=== PATIENT | male | born 1985 | race Caucasian/White ===

== ENCOUNTER 2017-05-02 10:28 | Emergency (ER) | payer OTHER ==
[2017-05-02 10:42] VITALS: BP 119/73; PULSE 82; TEMP 98.5; BMI 22.1
--- NOTE | 2017-05-02 11:37 | PDOC ---
History of Present Illness - General Chief Complaint: Injury Stated Complaint: INJURY Time Seen by Provider: 05/02/17 11:18 History Source: Patient Exam Limitations: No Limitations - History of Present Illness Initial Comments: CHIEF COMPLAINT: 31 y/o male with right 5th toe pain x 2 days. HISTORY OF PRESENT ILLNESS: Pt stubbed his right 5th toe 2 days ago after running after his son. He has taped it to the one next to it. He is here for an xray. He denies numbness/tingling. Vital signs on arrival are within normal limits. REVIEW OF SYSTEMS: GENERAL/CONSTITUTIONAL: No fever/chills. No weakness. No weight change. MUSCULOSKELETAL: +right 5th toe pain and swelling. No neck or back pain. SKIN: No rash or easy bruising. NEUROLOGIC: No headache, vertigo, loss of consciousness, or loss of sensation. PHYSICAL EXAM: VITAL_SIGNS: within normal limits GENERAL_APPEARANCE: alert, cooperative, no obvious discomfort. Pt is ambulatory. MENTAL_STATUS: speech clear, oriented X 3, responds appropriately to questions. NEURO: motor intact and sensory intact in injured extremity. EXTREMITIES: good pulse in injured extremity. Minor swelling and ecchymosis to right 5th toe. motor and sensory intact in affected extremity. Pain with palpation of 5th toe. SKIN: warm, dry, good color. Past History - Past Medical History Allergies/Adverse Reactions: Allergies Allergy/AdvReac Type Severity Reaction Status Date / Time NSAIDS (Non-Steroidal Allergy Verified 05/02/17 10:39 Anti-Inflamma Home Medications: Ambulatory Orders Hydrocodone Bit/Acetaminophen [Vicodin Hp 10-300mg -] 1 tab PO Q8H 02/28/15 Pregabalin [Lyrica] 100 mg PO Q8H 02/28/15 Acetaminophen [Tylenol] 650 mg PO Q4H PRN #20 tablet 08/27/15 Mag Hydrox/Al Hydrox/Simeth [Mylanta Suspension -] 30 ml PO Q6H PRN #1 bottle Ondansetron HCl [Zofran] 4 mg PO Q6H PRN #20 tablet 08/27/15 Ranitidine HCl [Zantac] 150 mg PO BID PRN #20 tablet 08/27/15 COPD: No GI Disorders: Yes (bleeding ulcer) Psychiatric Problems: Yes (SCHIZO EFFECTIVE BIPOLAR) - Suicide/Smoking/Psychosocial Hx Smoking Status: Yes Smoking History: Never smoked Have you smoked in the past 12 months: No Number of Cigarettes Smoked Daily: 0 Hx Alcohol Use: No Drug/Substance Use Hx: No Substance Use Type: Marijuana *Physical Exam - Vital Signs Last Vital Signs Temp Pulse Resp BP Pulse Ox 98.5 F 82 19 119/73 98 05/02/17 10:39 05/02/17 10:39 05/02/17 10:39 05/02/17 10:39 05/02/17 10:39 ED Treatment Course - RADIOLOGY Radiology Studies Ordered: Category Date Time Status TOE(S) RIGHT [RAD] Stat Radiology 05/02/17 11:28 Ordered Medical Decision Making - Medical Decision Making A/P: 31 y/o male with right 5th toe pain, most likely fx. Plan is as follows: 1. xray toe xray toe IMPRESSION: Nondisplaced fracture in mid an distal shaft of the 5th proximal phalanx. Gave the patient the results. Suggested he continue with sonya taping and follow RICE instructions. Suggested he continue taking his prescribed pain medication at home and f/u with Dr. Camejo in 2 weeks if no improvement in symptoms. The patient verbalizes understanding of all instructions, has no further questions and is awaiting discharge. *DC/Admit/Observation/Transfer Diagnosis at time of Disposition: Toe fracture, right Qualifiers: Encounter type: initial encounter Toe: lesser toe Fracture type: closed Phalanx : unspecified phalanx Fracture alignment: nondisplaced Qualified Code(s): S92.504A - Nondisplaced unspecified fracture of right lesser toe(s), initial encounter for closed fracture - Discharge Dispostion Disposition: HOME Condition at time of disposition: Good - Referrals Referrals: Juan Luis Camejo MD [Staff Physician] - - Patient Instructions Printed Discharge Instructions: How To Perform RICE (Rest, Ice, Compress, Elevate), DI for Toe Fracture Additional Instructions: Discharge Instructions: -Keep broken toe taped to the toe next to it -Follow RICE instructions -Continue taking the pain medication you are prescribed at home -Follow up with Dr. Camejo in 2 weeks if no improvement - Post Discharge Activity
== END 2017-05-02 13:16 | disposition home or self-care (01) ==
LOC: JERFT 10:28
DX: S92.504A Nondisplaced unspecified fracture of right lesser toe(s), initial encounter for closed fracture (principal); W22.8XXA Striking against or struck by other objects, initial encounter; Y93.89 Activity, other specified; Y92.9 Unspecified place or not applicable
CPT/HCPCS: 73660-TC-FY; 99281-25